=== PATIENT | female | born 1965 | race Caucasian/White ===

== ENCOUNTER → 2023-02-26 10:57 | Outpatient (BNVA) | payer OTHER, SELFPAY | PROVIDERS: PCP Internal Medicine; Referring Provider Internal Medicine; Visit Provider Physician Assistant Surgical ==

== ENCOUNTER → 2023-10-30 12:44 | Outpatient (BNVA) | payer OTHER, SELFPAY | PROVIDERS: PCP Internal Medicine; Visit Provider Physician Assistant Surgical ==

== ENCOUNTER 2023-11-20 10:14 | Outpatient (REF) | payer OTHER, SELFPAY | END 2023-11-20 10:15 | disposition home or self-care (01) | LOC: HO.LAB 10:14 | PROVIDERS: PCP Internal Medicine; Visit Provider Physician Assistant | DX: E66.01 Morbid (severe) obesity due to excess calories (principal); E11.9 Type 2 diabetes mellitus without complications; E78.5 Hyperlipidemia, unspecified | CPT/HCPCS: 99202 ==

== ENCOUNTER 2023-11-20 10:14 | Outpatient (AMB) | payer OTHER, SELFPAY ==
--- NOTE | 2023-11-20 10:24 | A.OFFVIS_ITS ---
Intake Intake Visit Reasons: (OV) re establish MWL BMI 49.3 Allergies No Known Allergies Allergy (Verified 10/30/23 13:28) Medication List - Last Reconciled 11/20/23 by Rebecca Stahl PA-C albuterol sulfate 90 mcg/actuation 2 inhalations inhalation Q4-6H PRN aspirin (Adult Aspirin Regimen) 81 mg PO DAILY atorvastatin 80 mg PO DAILY lisinopril 5 mg PO DAILY metformin 1,000 mg PO BID metoprolol succinate ER 25 mg PO DAILY semaglutide (weight loss) 0.5 mg subcut QWEEK verapamil ER 120 mg PO DAILY HPI HPI Comments History of Present Illness Details This is a 58 year old woman who is here for help losing weight s- unsure which method she wants to use. Her goal is to get her health in control. She reports first being concerned about her weight x few years. She has tried multiple methods of weight loss including Ozempic now started 1.5 months ago due to binge eating disorder. Also has history of PTSD, depression and anxiety- no therapist presently. She lives alone.. She is unemployed Blood sugar - fasting 115, during the 115 checks qid. Hgb A1C was 12. Has been on a plant based diet since August 2023. Recent blood work at [facility]: CMP revewed - all normal, Hgb A1C - 5.7 She wakes at: 7am bed at 9:30 pm Breakfast: 7:30 coffee 2 cups with flavored creamer. Oatmeal with frozen fruit, rosemary seeds and psyllium powder. mid morning snack celery sticks with humus or crackers with tabouli or fruit. Lunch: 1pm - cooked vegetable soup with tofu (4 oz). water or seltzer Dinner: 5:30 pm - salad with lemon, sometimes will add (1 serving size) seitan or tempeh or 1/4 - 1/2 cup beans. water or seltzer After dinner: handful of grapes or humus or apple with PB powder. Green tea Other snacks: carrots and celery beets radishes - for snacks uses a snack sized plate. Liquids: no soda or fruit juice Alcohol intake: once a year glass of wine, tobacco:stopped 3 years ago. marijuana: none Exercise: 3 d/ week - chair exercises for 20 minutes. Had a back injury from a fall 6 years ago, now how bulging discs and neuropathy in B upper and lower extremities. No neurologist now. Last mammogram: over 4 years ago. Last pap smear: over due control method: post menopausal JOLIE: 1 ESS:3 GERD:0 QOL:114 PFSH Surgical History (Updated 11/20/23 @ 11:16 by Rebecca Stahl PA-C) Hx of heart artery stent Hx of tonsillectomy Hx of section Family History Mother No problems noted. Father Diabetes Son No problems noted. Son No problems noted. Daughter No problems noted. Social History Alcohol intake: current Alcohol intake frequency: holidays/special occasions only Patient Tobacco Use Status: Former Tobacco user Quit Date: 3 YRS AGO Assessment & Plan Assessment & Plan (1) Morbid obesity: Code(s): E66.01 - Morbid (severe) obesity due to excess calories Plan: This is a 58 yo woman with morbid obestiy and multiple medical problems who qualifies for bariatric surgery but want to start MWL at this time. She will contact her PCP for further SS testing for MONO. Blood work has been ordered. . She will start MWL classes and watch all classes before her appt with Zaria. EMDR discussed briefly with patient in case she decides on SWL program. Purchasing Supervisor Dr Dixon, [facility]. Last appt 5 months ago, no ECHO or Stress test recently. 1. Adequate sleep of 7-8 hours per night discussed 2. Healthy meal plan -Patient requests only plant based foods in her meal plan, no dairy, fish or meat products All meals/MR's need to take 20 minutes to complete 7:30 am - coffee with UAM only 9 am - Orgain protein shake with water or UAM 12 pm - 30 grams of soy based protein, 8 oz vegetable, 1 serving fruit 3 pm- Orgain protein shake with water or UAM 7 pm- Orgain shake Exercise - LS 1 mile 4 d/week, sit or stand AND chair exercises 20 minutes daily Pt will purchase body composition analyzer (recommended list given to patient) and weight herself weekly. Next appt with Zaria in 4 weeks. Text me with any questions and weekly weights. Patient is morbidly obese and is not considered stable at this time.?I spent a total of 60 minutes reviewing/updating records, examining the patient and counseling the patient on weight management as detailed above. (2) Diabetes mellitus: Code(s): E11.9 - Type 2 diabetes mellitus without complications (3) Hypertension: Code(s): I10 - Essential (primary) hypertension (4) Hyperlipidemia: Code(s): E78.5 - Hyperlipidemia, unspecified (5) Myocardial infarction: Comment: October 2021, 2 stents placed Code(s): I21.9 - Acute myocardial infarction, unspecified (6) Obstructive sleep apnea: Comment: no CPAP Code(s): G47.33 - Obstructive sleep apnea (adult) (pediatric) (7) Asthma: Code(s): J45.909 - Unspecified asthma, uncomplicated Plan see above Coding Level of Care Code New Pt Level 5 (47995) Diagnoses Morbid obesity E66.01 Diabetes mellitus E11.9 Hypertension I10 Hyperlipidemia E78.5 Myocardial infarction I21.9 Obstructive sleep apnea G47.33 Asthma J45.909
== END 2023-11-20 12:10 | disposition home or self-care (01) ==
PROVIDERS: PCP Internal Medicine; Visit Provider Physician Assistant
DX: E66.01 Morbid (severe) obesity due to excess calories (principal); Z68.42 Body mass index [BMI] 45.0-49.9, adult; I10 Essential (primary) hypertension; E78.5 Hyperlipidemia, unspecified; I21.9 Acute myocardial infarction, unspecified; G47.33 Obstructive sleep apnea (adult) (pediatric); J45.909 Unspecified asthma, uncomplicated
CPT/HCPCS: 99205

== ENCOUNTER 2023-11-25 11:48 | Outpatient (REF) | payer OTHER, SELFPAY ==
[2023-11-25 12:03] LABS: MANUAL DIFF FLAG NO
[2023-11-25 12:33] LABS: Basophils Absolute Auto 0.1 X10*3/uL (0.0-0.2); Basophils Percent Auto 0.7 % (0-2); Eosinophils Absolute Auto 0.2 X10*3/uL (0.0-0.4); Eosinophils Percent Auto 1.6 % (0-4); Hematocrit 41.6 % (37.0-47.0); Hemoglobin 13.5 g/dl (12.0-16.0); Imm Gran Abs Auto 0.02 X10*3/uL (0.00-0.03); Imm Gran Pct Auto 0.2 % (0.0-0.4); Lymphocytes Absolute Auto 2.8 X10*3/uL (1.2-4.9); Lymphocytes Percent Auto 30.4 % (20-40); Mean Corpuscular HGB Conc 32.5 g/dl (31.0-35.0); Mean Corpuscular Hemoglobin 26.4 pg (27.0-33.0); Mean Corpuscular Volume 81.3 fL (80.0-98.0); Mean Platelet Volume 9.4 fL (9.4-12.3); Monocytes Absolute Auto 0.6 X10*3/uL (0.1-1.2); Monocytes Percent Auto 6.1 % (2-11); Neutrophils Absolute Auto 5.6 x10*3/uL (2.0-8.3); Platelet Count 476 X10*3/uL (160-400); Red Blood Count 5.12 X10*6/uL (4.20-5.50); Red Cell Distribution Width 13.9 % (11.0-16.0); White Blood Count 9.2 X10*3/uL (4.8-10.8)
[2023-11-25 12:40] LABS: Estimated Average Glucose 100 mg/dL; Hemoglobin A1c % 5.1 % (<6.0)
[2023-11-25 13:26] LABS: Alanine Aminotransferase 30 U/L (0-31); Albumin Level 4.6 g/dL (3.5-5.0); Alkaline Phosphatase 66 U/L (39-117); Anion Gap 15 (12-20); Aspartate Amino Transferase 25 U/L (5-31); Bilirubin Total 0.4 mg/dL (0.0-1.0); Blood Urea Nitrogen 7 mg/dL (9-16); C Reactive Protein 1.23 mg/dL (< or = 0.50); Calcium 9.5 mg/dL (8.4-10.2); Carbon Dioxide 22 mmol/L (22-29); Chloride 105 mmol/L (96-108); Cholesterol 126 mg/dL (<200); Estimated Glomerular Filt Rate > 60; Glucose Random 89 mg/dL (60-115); HDL Cholesterol 36 mg/dL (>40); Iron 32 mcg/dL (30-160); LDL Cholesterol Calculated 65 mg/dL (<100); Percent Iron Saturation 10 % (15-50); Potassium 3.7 mmol/L (3.3-5.1); Sodium 138 mmol/L (135-145); Total Iron Binding Capacity 331 mcg/dL (228-428); Total Protein 7.7 g/dL (6.5-8.0); Triglycerides 126 mg/dL (<150); Unsaturated Iron Binding 299 ug/dL
[2023-11-25 13:37] LABS: Ferritin 121 ng/mL (10-250); Insulin 18 uU/mL (2-29); TSH reflex Free T4 1.63 uIU/mL (0.32-4.0); Vitamin D 25-OH Total 15.1 ng/mL (>30)
[2023-11-25 13:53] LABS: Folate 8.2 ng/mL (> or = 4.0); Vitamin B12 769 pg/mL (200-900)
[2023-11-28 05:24] LABS: Zinc 80 mcg/dL (60-130)
[2023-11-28 18:18] LABS: Vitamin A 40 mcg/dL (38-98)
[2023-11-30 09:38] LABS: Vitamin B1 13 nmol/L (8-30)
== END 2023-11-25 11:49 | disposition home or self-care (01) ==
LOC: HO.LAB 11:48
PROVIDERS: Visit Provider Physician Assistant
DX: E66.01 Morbid (severe) obesity due to excess calories (principal); E11.9 Type 2 diabetes mellitus without complications; E78.5 Hyperlipidemia, unspecified; I10 Essential (primary) hypertension
CPT/HCPCS: 36415; 80053; 80061; 82306; 82607; 82728; 82746; 83036; 83525; 83540; 84425; 84443; 84590; 84630; 85025; 86140

== ENCOUNTER 2023-12-18 11:11 | Outpatient (AMB) | payer OTHER, SELFPAY ==
--- NOTE | 2023-12-18 11:01 | MHC.AMNUTRGE ---
Intake Intake Visit Reasons: VIDEO Initial Nutrition MWL Allergies No Known Allergies Allergy (Verified 10/30/23 13:28) HPI Nutrition Presentation Details MWL Reason for consult elevated BMI Diet Assmnt Details I am not doing very well States she was doing plant based no meat , minimal dairy , prior to program and felt amazing . Since beginning the program , she feels tired, low energy, I feel like I am regressing . she would prefer to return back to her plant based diet with minimal animal products. she has concerns this program is not a good fit for her at this time . 3 shakes per day with almond milk glucerna powder 1 serving fruit dinner protein and veg She is open to the idea of bariatric surgery in the future if she unable to meet her weight loss goals without it Exercise: none now Diagnosis Nutrition problem #1 overweight/obesity As related to (etiology) #1 excess energy intake and physical inactivity As evidenced by (sign/symptom) #1 high BMI Monitoring/Goals Nutrition problem monitoring total energy intake, level of knowledge/skill, total PRO intake, total CHO intake and weight Learning/Education Readiness to learn good Most Recent Diabetes Results: Cholesterol 126 mg/dL (<200) 11/25/23 HDL Cholesterol 36 mg/dL (>40) L 11/25/23 Triglycerides 126 mg/dL (<150) 11/25/23 Creatinine 0.64 mg/dL (0.5-1.4) 11/25/23 Blood Urea Nitrogen 7 mg/dL (9-16) L 11/25/23 Sodium 138 mmol/L (135-145) 11/25/23 Potassium 3.7 mmol/L (3.3-5.1) 11/25/23 Chloride 105 mmol/L (96-108) 11/25/23 Carbon Dioxide 22 mmol/L (22-29) 11/25/23 Calcium 9.5 mg/dL (8.4-10.2) 11/25/23 AST 25 U/L (5-31) 11/25/23 ALT 30 U/L (0-31) 11/25/23 Total Protein 7.7 g/dL (6.5-8.0) 11/25/23 Albumin 4.6 g/dL (3.5-5.0) 11/25/23 [facility] Surgical History (Updated 11/20/23 @ 11:16 by Rebecca Stahl PA-C) Hx of heart artery stent Hx of tonsillectomy Hx of section Family History (Reviewed 11/20/23 @ 10:42 by Yasmine Pack [facility]) Mother No problems noted. Father Diabetes Son No problems noted. Son No problems noted. Daughter No problems noted. Social History (Reviewed 11/20/23 @ 10:42 by Yasmine Pack [facility]) Alcohol intake: current Alcohol intake frequency: holidays/special occasions only Patient Tobacco Use Status: Former Tobacco user Quit Date: 3 YRS AGO Assessment & Plan Assessment & Plan (1) Morbid obesity: Code(s): E66.01 - Morbid (severe) obesity due to excess calories Plan Encouraged a dietary approach that fits her preferences the best and makes her feel her best. I encouraged ensuring she gets enough protein with a fully plant based diet, consider B12, iron, calcium supplementation. recommended some plant based protein powders if she is having a hard time meeting the goal of 100g per day via whole foods. She will likely not proceed with [facility] Telehealth Telehealth Location of provider rendering services: practice address Location of patient: address on file Patient Identification confirmed using: Name, : Yes Telehealth method: voice only Patient verbally consented to treatment: Yes Patient verbally consented to billing insurance company: Yes Patient informed of any privacy concerns related to visit: Yes Minutes spent on Phone/Video with Pt.: 30 Coding Level of Care Code Nutr Indiv Intake (32811) Diagnoses Morbid obesity E66.01 Time Spent (min) 30
== END 2023-12-18 11:23 | disposition home or self-care (01) ==
LOC: HO.HBS 11:11
PROVIDERS: PCP Internal Medicine; Visit Provider Dietitian, Registered
DX: E66.01 Morbid (severe) obesity due to excess calories (principal)

== ENCOUNTER → 2023-12-18 11:11 | Outpatient (BNVA) | payer OTHER, SELFPAY | PROVIDERS: PCP Internal Medicine; Visit Provider Dietitian, Registered | DX: E66.01 Morbid (severe) obesity due to excess calories (principal) | CPT/HCPCS: 97802 ==